=== PATIENT | female | born 2005 | race Caucasian/White ===

== ENCOUNTER 2025-08-19 13:09 | Outpatient (REF) | payer OTHER, SELFPAY ==
[2025-08-20 14:56] LABS: Bacterial Vaginosis PCR NEGATIVE (Negative); Candida Group PCR NOT DETECTED (Not Detect); Candida glab krusei PCR NOT DETECTED (Not Detect); Trichomonas vaginalis PCR NOT DETECTED (Not Detect)
[2025-08-20 15:26] LABS: CT PCR NOT DETECTED (Not Detect.); NG PCR NOT DETECTED (Not Detect.)
== END 2025-08-19 13:10 | disposition home or self-care (01) ==
LOC: HO.LNP 13:09
PROVIDERS: PCP Pediatrics; Visit Provider Advanced Practice Midwife
DX: Z01.419 Encounter for gynecological examination (general) (routine) without abnormal findings (principal); Z20.2 Contact with and (suspected) exposure to infections with a predominantly sexual mode of transmission; Z30.09 Encounter for other general counseling and advice on contraception; Z79.899 Other long term (current) drug therapy
CPT/HCPCS: 81515; 87491; 87591; 88175

== ENCOUNTER 2025-08-19 13:09 | Outpatient (AMB) | payer OTHER, SELFPAY ==
--- NOTE | 2025-08-19 13:10 | A.OFFVIS_ITS ---
Vital Signs 08/19/25 13:18 Height 5 ft Weight 126 lb BMI 24.6 BP 114/68 Intake Visit Reasons: New patient Birthcontrol Green Building Architect: Green Building Architect Present (Liya) Accompanied by: Self / Same As Patient Allergies No Known Allergies Allergy (Verified 08/19/25 13:17) Medication List - Last Reconciled 08/19/25 by Janine Woods CNM levonorgestrel-ethinyl estrad 0.1-20 mg-mcg (Vienva) 1 tab PO DAILY Is last menstrual period known: Yes Last menstrual period: 08/05/25 Post menopausal: No Patient : No HPI HPI New patient Birthcontrol: Details: Patient is here scheduled for a new patient control visit but the patient tells me she is on control and is doing very well with her control pills and is not having any issues with them at all. 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 She has plans to go to a practice that has been recommended to her. She said she was on pills from age 11 on for years and stopped them at some point because she felt the she wanted to give herself a break for various reasons and her periods then returned to very heavy long periods which is why she was started on them in the 1st place when she is on the pills her periods come very regularly within a day or 2 of stopping the active pills and taking the placebo pills and last for about 5 days and are not heavy.. She is sexually active and when she has sex with anyone she makes sure that they where a condom 100%. Her only health history problems revolve around a torn labrum when she was running cross-country and she had a repair at age 16 during the pandemic and says she is fine now and has resumed running. She does not smoke she has healthy habits otherwise she wears a seatbelt. 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 Female Reproductive History Menstrual Age of Menarche: 10 Date of last menstrual period: 08/05/25 control method: pills Total pregnancies: 0 Physical Exam Vital Signs: Last Vital Signs BP 114/68 08/19/25 13:18 BMI result Body Mass Index 24.6 Const General: healthy appearing, comfortable, no acute distress, well developed and alert Nutritional Appearance: average body habitus Orientation/consciousness: patient oriented x3 Limitations: no limitations HEENT Head: Yes normocephalic Neck Neck: Yes normal visual inspection Chest Chest palpation & inspection: normal inspection of the chest Breast/axilla inspection: normal inspection of the breasts and normal inspection of the axillae Breast/axilla palpation: normal palpation of the breasts and normal palpation of the axillae Resp Effort & Inspection: normal respiratory effort GI Inspection: Yes normal to inspection, No Abdominal wall edema and No distended Palpation (GI): Soft to palpation and nontender Other: External exam within normal limits vagina is pink and moist nulliparous cervix pink smooth healthy appearing with very normal appearing mucus consistent with consistent OCPs. Slightly friable with Pap cervix long close thick mobile nontender cervix is deep in pelvis uterus midposition to anteverted mobile nontender adnexa nontender no organomegaly good muscle tone. General: Yes bladder normal to palpation External Female Exam: normal external appearance and normal appearance of the urethra Speculum Exam - Vagina: normal appearance of the vagina, normal palpation and normal vaginal discharge Speculum Exam - Cervix: normal appearance of the cervix, normal palpation and nontender Bimanual exam- vagina & uterus: normal bimanual exam, normal palpation, uterine size normal, bladder normal to palpation, consistency normal, normal palpation, uterine mobility normal, uterine shape normal, No Cervical tenderness present, non-tender and no cervical motion tenderness Bimanual Exam- Adnexa, other: normal adnexae, no masses, normal and No adnexal tenderness Neuro General: patient oriented x3 Assessment & Plan Assessment & Plan (1) Encounter for Papanicolaou smear for cervical cancer screening: Code(s): Z12.4 - Encounter for screening for malignant neoplasm of cervix Category: Medical (2) Counseling for control, oral contraceptives: Code(s): Z30.09 - Encounter for other general counseling and advice on contraception Category: Medical (3) Encounter for screening examination for sexually transmitted disease: Code(s): Z11.3 - Encounter for screening for infections with a predominantly sexual mode of transmission Category: Medical Plan -----Discussed in this visit the following: healthy balanced diet, regular and consistent exercise, getting recommended health screens, doing the best she can for her particular health concerns, kegel exercises, pap smear screening and followup recommendations, mammography screening and SBE, normal changes in cycles in her life stage--- . She has no family history of cancer. She believes that she receive the HPV vaccine from her buffing wheel operator. She has stead fast about her use of condoms and has no desire to contract STIs. She declines blood work for screening for HIV hep B hep C and syphilis but she would seek testing if she has never had any concerns. She has been on the pills and then off the pills and back on these pills which are a lower dose than the original ones and is doing very well with them and has no concerns whatsoever on the pills. She had mentioned a concern of endometriosis when she spoke with the MA and I explained the diagnostic process to discover if that is a problem and usually if somebody has improvement of dysmenorrhea and heavy menses with OCPs that in and of itself is a beneficial sign and does not point in the direction of endometriosis.. She assured me that she has a enough control pills in her current prescription and I urged her just to be careful not to run out and if she wanted us to take over the prescribing the control pills she would just need to call and I would recommend she call whenever she would be alerted to a warning of no further prescription so that there is time for us to send them in a timely manner so she does not run out between packs she believes that future primary care we will continue the prescription. Discussed interval for Pap smear screening and annual exam visits and the whoever would be prescribing her control pills would need to see her on a yearly basis if this Pap smear is negative her next Pap smear would be in 3 years. Also reviewed the testing for tests we did today for gonorrhea chlamydia and trichomoniasis which are STIs and bacterial vaginosis and yeast which are not and the imperfections in their testing criteria which often yield over calling of diagnoses and that she only needs to treat if she has symptoms. Orders: Orders Pap Smear Today Z01.419 - Encounter for gynecological examination (general) (routine) without abnormal findings CT NG by PCR Vag/Cerv Today Z01.419 - Encounter for gynecological examination (general) (routine) without abnormal findings Bacterial Vaginosis Panel Today Z01.419 - Encounter for gynecological examination (general) (routine) without abnormal findings Coding Level of Care Code New Pt Prev Care [id number]([id number] Diagnoses Encounter for Papanicolaou smear for cervical cancer screening Z12.4 Counseling for control, oral contraceptives Z30.09 Encounter for screening examination for sexually transmitted disease Z11.3
[2025-08-19 13:18] VITALS: BP 114/68; BMI 24.6
--- OUTSIDE RECORDS SUMMARY | 2025-08-19 15:54 | XMS_ITS | Encounter Summary ---
Author Organization [facility] Address [address] [place] [phone] Phone Care Team Providers Care Corporate Job Titles Name Role Phone Anaid Maciel NP Primary Care Provider [phone] Reason for Visit * Reason Comments Med Refill Encounter Details Date Type Department Care Team (Late st Contact Info) Description 12/05/2018 Refill [facility] [address] [place] [address] [place] [phone] Caridad Griffin MD [address] [place] [id number] Encounter for surveillance of contraceptive pills Social History Tobacco Use Types Packs/Day Years Used Date Smoking Tobacco: Never Smokeless Tobacco: Never Comments:Never Smoker Comments Unknown Sex and Gender Information Value Date Recorded Sex Assigned at Female 04/15/2025 1:41 PM EDT Legal Sex Female 6:28 PM EDT Gender Identity Female 11/17/2021 2:17 PM EST Sexual Orientation Straight 04/09/2024 1: 47 PM EDT documented as of this encounter Miscellaneous Notes * Telephone Encounter - Nancy Hernandez MA - 12/05/2018 9:05 AM EST Last pe 09/17/18 with [facility] documented in this encounter Plan of Treatment Upcoming Encounters Date Type Department Care Team (Late st Contact Info) Description 04/16/2026 1:30 PM EDT Office Visit [facility] [address] [place] [address] [place] [phone] Anaid Maciel NP [address] [place] [address] [place] [phone] documented as of this encounter Visit Diagnoses Diagnosis Encounter for surveillance of contraceptive pills documented in this encounter Care Teams Corporate Job Titles Relationship Specialty Start Date End Date Anaid Maciel NP [facility] [facility] [place] [phone] PCP - General Pediatrics 04/25/23 documented as of this encounter
--- OUTSIDE RECORDS SUMMARY | 2025-08-19 15:54 | XMS_ITS | Clinical Summary ---
Author Organization [facility]'s Address [address] [place] [phone] Phone Care Team Providers Care Manufacturing Development Engineer Name Role Phone Anaid Maciel NP Primary Care Provider [phone] Allergies Active Allergy Reactions Criticality Noted Date Comments Carrot Oil 09/21/2024 Environmental 09/17/2018 seasonal Shellfish Protein-Containing Drug Products 09/21/2024 Medications Cetirizine HCl (ZYRTEC PO) prn 6 Active benzoyl peroxide 5 % external liquidIndicatio ns:Acne vulgaris Apply topically daily. 142 g 12 5 04/15/20 26 Active clindamycin 1 % lotionIndicatio ns:Acne vulgaris Apply topically daily. 60 mL 5 04/15/20 26 Active tretinoin (Retin-A) 0.025 % creamIndication s:Acne vulgaris Apply 1 Application topically nightly. Apply to affected area after gentle cleansing 45 g 5 5 04/15/20 26 Active EPINEPHrine 0.3 MG/0.3ML injection syringeIndicati ons:Shellfish allergy Inject 0.3 mL (0.3 mg total) into the muscle Once PRN for anaphylaxis for up to 1 dose. 2 each 5 Active Vienva 0.1-20 MG-MCG per tabletIndicatio ns: control counseling TAKE 1 TABLET BY MOUTH EVERY DAY 84 tablet 3 5 Active Active Problems Problem Noted Date Diagnosed Date Acne vulgaris 04/15/2025 Assessment & Plan (04/15/2025 1:53 PM EDT): AM - benzoyl peroxide wash, clindamycin spot treatment PM - cleanse face, retinoid cream Moisturize twice daily Use sunscreen! control counseling 04/09/2024 Assessment & Plan (07/17/2025 9:58 AM EDT): Doing well. BP WNL No concerns Will be getting in with NETWORK SYSTEMS ANALYST for pap smear soon Assessment & Plan (04/15/2025 1:53 PM EDT): Counseling completed Young Adult Plan: Get 8-9 hours of sleep per night. Eat healthy diet including 5 servings fruits and vegetables, no daily soda or juice, 3 servings calcium rich foods daily. Get one hour of exercise daily. Wear seatbelt in car, helmet while riding bike. Dental checkup every 6 months If wears eyeglasses or contacts, vision exam yearly Personal space, safe sex, bullying counseling done. Assessment & Plan (04/11/2025 11:45 AM EDT): Elvira would like to start on OCP No contraindications Discussed side effects Counseling completed Will recheck in 3 months test was negative control pills: Start taking control the Monday during or directly after your next period begins. Take the pill at the same time every day (can set an alarm on phone). If nausea occurs then okay to take pill at night before bed. If a pill is forgotten then take 2 pills on one day, if 3 pills are missed then you will take 2 pills for the following 2 days. Do NOT take more than 2 pills at one time. Follow up in 3 months after starting control. Be sure to stay well hydrated while on control pill. Monitor for severe chest pain or leg pain which can be the sign of a blood clot, especially in the context of a long flight or other immobilization. Perform calf massages and exercises during immobilization. Remember that antibiotics can interfere with a control pill's effectiveness if it is being used for contraception, and a backup method of contraception such as condoms should be used. Assessment & Plan (04/09/2024 2:05 PM EDT): Growing and developing well [facility] counseling completed Young Adult Plan: Get 8-9 hours of sleep per night. Eat healthy diet including 5 servings fruits and vegetables, no daily soda or juice, 3 servings calcium rich foods daily. Get one hour of exercise daily. Wear seatbelt in car, helmet while riding bike. Dental checkup every 6 months If wears eyeglasses or contacts, vision exam yearly Personal space, safe sex, bullying counseling done. Other insomnia 04/07/2023 Assessment & Plan (04/07/2023 8:44 AM EDT): Will increase Fluoxetine dose to 15mg daily. Recheck in 5-6 weeks. Counseling done. Depression 11/18/2021 Anxiety disorder 09/07/2021 Assessment & Plan (04/15/2025 1:53 PM EDT): Doing well without medication Assessment & Plan (11/17/2024 4:00 PM EST): Pt presented for follow-up with [facility] Her best friend Patti had her baby- Raji and she is going to be Aunconor Thomas. She hasn't met this little baby yet, but is going to give her friend time to settle in and wants to be able to offer her some time to shower and do what she needs and pt can watch the baby. Has a date- met on hinge. Not sure she will be into it, but will give it a try. 8am coffee/tea date before she has to go to work. School starts Monday - busy schedule but Is wanting to start and get back into the groove of school and all that entails. She noted that she is planning to talk to mom next week about where she is with finding a therapist. She thinks that mom has been drinking a few times, not sure, and doesn't want to pry and ask. Pt will return for follow-up with [facility] end of month Pt denies SI HI AVH Assessment & Plan (11/01/2024 12:57 PM EST): Pt presented for follow-up with [facility]. She noted that her mom relapsed a few weeks ago, she admitted to drinking again. Pt noted that while she was upset and concerned, she operates from her logical brain and was able to talk with mom, ask open ended questions, filtering down to under the surface. [place] like her therapist, didn't like that. [place] it was too much for her, but is hopeful she planted the seed for mom to be more open to finding a therapist for herself. Pt noted that mom will be having a good day, but will point out the negatives and dwell. Also mom is used to routine/patterns of having a drink when she wants. Stages of change Told mom- AA meeting and/or therapist and then I won't bother you, you are on your own Pt was able to set some boundaries and also be supportive- discussed showing mom that this does affect her emotionally, as the daughter, not blaming or shaming, but be authentic. Pt denies SI. JYOTI DOMINGO Will follow-up in a few weeks Assessment & Plan (10/05/2024 2:11 PM EST): Pt presented for follow-up with [facility]. She noted that her mom has remained sober, as far as she knows, she has seen her a few times and believes she is in better spirits. 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 She tried her best in all classes and is doing well, but this one class she feels the professor is not fair in many ways. Pt noted that she feels she has time management skills down, not working has been helpful to complete assignments and attend classes to soley focus on school. Her best friend will be having her baby in November and she is very excited! Pt denies SI, JYOTI DOMINGO Will follow-up with pt after [facility] Assessment & Plan (08/27/2024 11:34 AM EDT): Pt presented for follow-up with [facility]. She was apologetic for no-showing the appt scheduled for 08/19- she noted that her mom was in the hospital and was focused on that. Pt discussed at length regarding her mom- her mom has been an alcoholic for as long as she can remember, but functional , as her mom would say. Apparently her mom drank more than she usually consumes, was dehydrated and was taken to the ER with essentially alcohol poisoning. Pt and her sister and her aunt were all there- discussing possible interventions, do they trust her to go home and not drink? Is her enabling her? Pt was emotional as she wants her mom to get help, however she is resistant now. Pt noted that her mom has not had any alcohol, to her knowledge, since last weekend when she was taken to the ER. She was admitted and give fluids. Pt went out to eat with her mom- she saw her eat and now she is drinking tea instead of alcohol. Pt wants to be hopeful and optimistic that her mom will commit to sobriety, but she is not sure if there is something else she should be doing. Discussed with pt the stages of change and how people will cycle through- hoping for no relapse. Pt noted that she is sad, mad, frustrated but also wants to be supportive. She uses humor to deflect- something that has been helpful for her. Praised pt for mario assertive, trying to set boundaries with her mom and hold her accountable Pt noted that family comes first and luckily her professor's were understanding. Pt will follow-up with [facility] in a month or so. Advised pt to look into recovery places and supports for mom, even if she is hesitant now, also for pt to gain more knowledge of what mom may be experiencing emotionally and physiologically. Pt receptive- pt denies JOSE L SCHAFER AVH Assessment & Plan (07/04/2024 3:24 PM EDT): Pt presented for follow-up with [facility]. School starts again next week- her schedule is heavy Mon, Tues and Wed, labs each day. She is not going to be working when school begins in order to prioritize school work. She is worried about money not working, but also not planning to spend much. If the work load is not too demanding, she may consider picking up some shifts at the [employer]. Pt discussed her recent interaction with her ex- thoughts and feelings around that and what she would like to happen- wanting to be friends and not have it be awkward. She does want to focus on school and not getting behind and stressed. Pt will follow-up with [facility] in August- assess and plan from there. Pt denies JOSE L SCHAFER Assessment & Plan (06/06/2024 2:15 PM EDT): Pt presented for follow-up with [facility]. She discussed her recent trip to [place], with her best friend and her bf. First time flying and it was OK- some travel delays and hiccups, but all in all she had a good time and enjoyed being away for a week. Pt will continue to work at the [employer] for the summer, but once school starts she will not work as school will be demanding of her time. She noted some worry about money as she prides herself on being financially independent. Pt lives within her means and is very responsible, per her report. No other issues or concerns reported - she is enjoying the time off of school and mentally preparing for next semester. Pt denies JOSE L SCHAFER AVH Will follow-up with pt towards end of the month, prior to school starting. Assessment & Plan (05/17/2024 9:42 AM EDT): Pt presented for follow-up with [facility]. She took one summer class, which just ended and will be taking another one, online, in a few weeks. Her best friend is - she is really excited for her. Pt her best friend and best friend's bf are going to [place] this weekend for a week- pt has never flown, so a bit nervous about it. Discussed some strategies to calm her self before the flight and on the flight. Pt has been able to relax a bit this summer- working a few days, but with less school work, it has been less stressful. Fall semester she will have a lot of labs, long days and already decided that she is not going to work for the semester as it will be too much on her plate. Pt demonstrating good judgement and boundaries. No other issues reported- pt denies JOSE L SCHAFER AVH Will follow-up with pt in 5-6 weeks. Assessment & Plan (04/09/2024 2:05 PM EDT): Stopped taking her fluoxetine. Would not like to restart. Would like to see Theresa Lagos showed her last visit so will need to get approval prior to starting. Message sent to Theresa HardyHomero Assessment & Plan (01/09/2024 1:48 PM EST): Pt presented for follow-up with [facility]. She is on spring break from college this week- working at [employer] and relaxing. She discussed some drama going on with her reshma friends and ex-bf. She noted that her ex-bf is concerned that pt and their mutual reshma friend are going to be dating- no evidence of this, but supposedly this has caused some stress for pt. She wanted to try and figure out exactly what her ex-bf was trying to do or what trust issues he was having. Pt is still friends with the other guys- noted that this is typical behavior of her ex. No other concerns reported- she is not going to stress about the WISH program at school where she gets a monetary scholarship for maintaining a 3.5 gpa. Pt will follow-up with [facility] in 1 month. Pt denies SIJOSE L, JERRELLH Assessment & Plan (12/14/2023 2:06 PM EST): Pt presented for follow-up with [facility]. Pt started new semester of college and has been very busy with classes, homework and also working at the [employer]. She likes being busy, but some days it feels non-stop. She is learning ways that help her to best organize and use her time management effectively. One scholarship she received required she maintains a 3.5 GPA, hers last semester was 3.2. She is not too concerned, and is pleased with her grades considering some classes were quite difficult. Discussed importance of self-care while working and in school- to find time to do something relaxing and/or productive to relieve some stressors. Pt denies SI, HI, AVH Pt will follow-up with [facility] in 1 month Assessment & Plan (11/17/2023 4:20 PM EST): Pt presented for follow-up with [facility]. Pt is still on winter break and been working and just hanging out. Pt discussed at length her past relationship and some thoughts and feelings that have come up that have made her sad and question herself at times. She noted that her ex-bf had pros and cons- learned things from the relationship that she will look out for in the future. Likes the idea of having a bf and someone to love and be close to, however no one has fit the mold yet. [facility] encouraged pt to stick with her morals and values- trust her gut and intuition. Still young and many things in life to experience. No other concerns reported- pt denies SI, HI, AVH Will follow-up with pt in 3-4 weeks Assessment & Plan (10/27/2023 1:08 PM EST): Pt presented for follow-up with [facility]. She just finished her finals for the semester and grades were better than she was expecting. Organic Chem is still hard- she will be taking it again next semester. Pt noted she feels is in a good routine with work and school- figuring out good time management skills and improving motivation. She will continue to work at the [employer] next semester, but due to class schedule, her days and time will be different. Pt demonstrated her assertiveness and spoke with management about what she is able to do and her requests were fulfilled. Pt noted she is going to see some friends from high school this weekend- discussed some stress with planning and and miscommunication, but she is looking forward to it regardless. No concerns reported- pt seems to be doing well and is proud to have finished her first semester at [employer]. Pt denies SI, HI, AVH Assessment & Plan (09/25/2023 2:24 PM EST): Pt presented for follow-up with [facility]. She noted that she is doing ok with school- feels as though she is keeping up with work, assignments and studying, while also working her job. She is adjusting well and while nervous for finals, is going to remain optimistic and not over think studying and studying habits. Organic Chem is still hard for pt, but she is getting extra help when needed. She noted she is looking forward to a break for Thanksgiving to recharge and do things for herself. No other concerns reported- pt seems to be adjusting and has a good attitude toward challenges she is facing. Will follow-up with pt in 1 month, midst or after finals. Pt denies SI, HI, AVH Assessment & Plan (08/28/2023 2:20 PM EDT): Pt presented for follow-up with [facility]. She noted she has been a little stressed with mid-terms happening, worried about time management. She has been doing well with school and work, however mid-terms have increased some stress. She is getting extra help for Chemistry with a fellow classmate and trying her best. Discussed how this is the first semester- still trying to figure it all out in regards to professors, teaching styles, time management. She was sad to report that they had to put her cat down last week, as she has been ailing in health. As much as she would love another pet right now, it may be too soon and with her busy schedule she won't be able to care for it as she would want. Despite some stressors and trying to figure school out, she remains optimistic about problem solving and time management. Will follow-up with pt in 3-4 weeks. Pt denies JOSE L SCHAFER AVH Assessment & Plan (07/03/2023 5:34 PM EDT): Pt presented for follow-up- noted she has been a bit stressed in regards to money. She has not picked up her medication, Fluoxetine, as she didn't have enough money. She noted that her cat has been sick, and her and her sister took him to the ER, which cost more than they expected. She discussed her frustration with her father as she feels he is not good with money- will spend it on dumb things , then will get anxious when money is tight. Pt noted that she tends to be the rational and logical one, where her father tends to be operating from the emotional brain. Pt has learned throughout the years to become assertive, despite some uncomfortableness. Pt prides herself on making good choices in regards to money and spending- something she mentioned her father and sister lack. Pt will be starting school soon at [employer] and will continue to live at home and work at the [employer]. She reported having mixed emotions about school- excited to get back into the routine and learn about specific interests such as science and human behavior. Despite some stressors, pt presents confident and realistic. Will follow-up with pt in 1 month to check-in and assess need for ongoing sessions. Pt denies SI, HI, AVH Assessment & Plan (05/30/2023 2:18 PM EDT): Pt presented for follow-up and noted she has been running around doing errands and was called into work for a few hours on her day off. Pt noted that she enjoys being busy, despite complaining at times. She is still yearning for her own dog, but her dad is still hesitant to allow that. Pt noted she is going to hold off as she will be starting school in the fall and in not sure if her schedule would allow for her to care for a dog. No new concerns reported and will follow up with pt in 1 month No SIJOSE L AVH Assessment & Plan (05/12/2023 2:59 PM EDT): Pt presented for follow-up with [facility] and noted she just came back from a family vacation in the [facility]. She had a nice and relaxing time- spent time with her sister and one of her good friends. Pt noted work has been going well- is still hoping for a dog, but her father is still not on board. Pt reported thinking about past trauma - with a previous boyfriend who she dated for a little while. 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 Pt discussed her mother and borderline alcoholism as her mother does drink nightly- sometimes get drunk. Due to her mother and her behaviors, pt is more cognizant of what she does in regards to alcohol and other substances. Pt noted she is more aware of yellow and red flags in regards to relationships and would like to explore this further in future sessions. Will follow-up with pt in 1 month Pt denies SI, HI, AVH Assessment & Plan (04/13/2023 12:49 PM EDT): Pt presented for consult with [facility] to discuss anxiety and ways to manage it. Pt is an animated, talkative and hard working 18 y/o, who has been experiencing heightened anxiety due to over thinking situations and events, being somewhat close-minded out of defense/fear and difficulty sleeping. Pt noted that she has always struggled with sleep, ever since she was little. Although not ideal, she has learned to function on minimal sleep. Which could be exacerbating the anxiety. Pt recently fished 2 years at [employer] and will be going to [place] in the fall, living at home and commuting. She is working at a [employer] day [employer] place in [place] and really enjoys it. She wants her own dog, but her father has been giving her push back. Pt noted that it can be hard to shut her brain off at times- especially at night. She noted trying different medications for sleep and has started taking Ashwaganda ( natural remedy) in conjunction with her fluoxetine 15mg. [facility] inquired about skills that she has used and worked, as well as ones that do not work. Encouraged journaling when having racing thoughts as a way to get them down on paper to take up less brain power. Self-care importance- mind, body and soul. Pt will benefit from CBT skills and learning to put less pressure and expectations on herself. She is social and would like to be able to meet more people, just unsure how to. Pt will follow up with [facility] in 5 weeks to assess anxiety levels and any strategies learned. Pt denies SI, HI, AVH Assessment & Plan (03/08/2023 10:09 AM EDT): Elvira presents today for new side effects since increasing her fluoxetine. She also had similar side effects from Lexapro. We discussed the option of switching drug classes to SNRI. Elvira would like to try returning to her previous dose and see how she does. She has a [facility]CC in one month with Dr. Mclean to discuss how this is going. We did discuss the importance of calling the office if these side effects do not lessen from decreasing her dose or if she has a worsening of depression/anxiety. I am also going to set her up to meet with BHARATH Medrano. She was seen in the past by Dr. Jackson but this wasn't a good fit for her. I think she may benefit from a few sessions with Theresa. We also discussed reaching out to [facility] or [facility] for a fpc therapist. Extrinsic asthma 09/11/2017 Overview (09/22/2018): Reactive airway disease (493.00) Onset: 09/11/2017 Added by: Caridad Griffin Assessment & Plan (04/07/2023 8:47 AM EDT): Stable. Counseling done. Resolved Problems Problem Noted Date Diagnosed Date Resolved Date Irregular menstrual bleeding 04/17/2024 04/15/2025 Assessment & Plan (04/17/2024 12:01 PM EDT): Variety of differentials for irregular menstrual bleeding x 1 month Will do blood work today. Order pelvic US. Also reports pain with sex. ?fibroids Referral for NETWORK SYSTEMS ANALYST was placed last week Sleep difficulties 09/07/2021 Palpitations 06/30/2021 04/15/2025 Assessment & Plan (06/30/2021 10:59 PM EDT): Very brief episodes of palpitations (10-60 seconds) that are not associated with any other symptoms and are not interfering with any activities. No concern currently for a significant arrhythmia, thyroid dysfunction, reflux or lung issue. Most likely increased sensation of heart rate. Return for further evaluation if episodes are becoming more frequent or are interfering with activity. Influenza vaccine refused 09/17/2018 Closed fracture of phalanx of foot 02/15/2018 06/18/2021 Overview (09/22/2018): Closed fracture of toe (826.0) Onset: 02/15/2018 Added by: Debi Membreno Encounters Date Type Department Care Team Description 07/22/2025 Orders Only [facility] [address] [place] [address] [place] [id number] Anaid Maciel NP control counseling (Primary Dx) 07/21/[address] [place] [address] Anaid Maciel, PRATIBHA NETWORK SYSTEMS ANALYST 07/17/2025 9:30 AM EDT Office Visit [address] [place] [address] Anaid Maciel NP control counseling (Primary Dx); Need for vaccination 07/03/2025 Telephone [facility] [address] [place] [address] [place] [address] Anaid Maciel, PRATIBHA Referral to Derm 05/29/2025 Refill [facility] [address] [place] [address] [place] [address] Anaid Maciel, PRATIBHA control counseling from Last 3 Months Immunizations Immunization Administration Dates Next Due DTaP 5 06/23/2008, 4,2003,07/09,2003 HPV Vaccine 9 Valent 09/22/2020,09/17/2019,09/17 Hep A, ped/adol 09/17/2018,09/11/2017 Hep B, ped/adol 05/19/2004,2003,2003 Hib (PRP-T) 08/25/2004, 3,2003,04/28 IPV 06/23/2008, 4,2003,04/28 Influenza, injectable, quadr ivalent, preservative free 12/27/2021,09/17/2018 Influenza, injectable, triva lent, preservative free 07/17/2025 MMR 06/23/2008,02/16/2004 Meningococcal Conj (Menactra) MCV4P 09/17/2019,0 02/13/2017 Pneumococcal Conjugate 13-Valent 005,2003,2003,04/28 Tdap 07/17/2025,06/26/2015 Varicella 06/23/2008,02/16/2004 Family History Medical History Relation Name Comments No Known Problems Father David No Known Problems Mother Griselda No Known Problems Sister Zuly Relation Name Status Comments Father David Alive Mother Griselda Alive Sister Zuly Alive Social History Tobacco Use Types Packs/Day Years Used Date Smoking Tobacco: Never Smokeless Tobacco: Never Comments:Never Smoker Alcohol Use Standard Drinks/Week Comments Yes 0 (1 standard drink = 0.6 oz pur e alcohol) socially Hunger/Food Answer Date Recorded In the last 12 months, did y ou or your family ever eat less than you felt you should because there wasn't enough money for food? No 04/15/2025 Stable Housing Answer Date Recorded Are you worried that in the next 2 months you may not have stable housing? No 04/15/2025 Transportation Concerns Answer Date Rec orded In the last 12 months, have you or your family ever had to go without healthcare because you didn't have a way to get there? No 04/15/2025 Hazards in Home Answer Date Recorded Think about the place you li ve. Do you have problems with any of the following? Pests (mice or roaches), mold, no/not working smoke detectors, water leaks, no window guards. No 2024 Financing Utilities Answer Date Recorde d In the last 12 months, has t he electric, gas, oil, or water company threatened to shut off your services in your home? No 04/15/2025 Safety at Home Answer Date Recorded Are you or your family worried about feeling saf e in your home? No 04/15/2025 Outside Support Answer Date Recorded Do you feel that you need mo re support from other people or programs to help you care for yourself or your family? No 04/15/2025 Understanding Health Concerns Answer Da te Recorded Do you need help understandi ng your or your child's healthcare needs (diagnosis, medications, plan, etc.)? No 04/15/2025 Financing Health Concerns Answer Date R ecorded In the last 12 months, was t here a time when your child needed to see a doctor or get medications or supplies but could not because of cost? No 04/15/2025 Missing School or Work Answer Date Kostas rded Did you or your child miss s chool or work because of a health problem that could have been avoided? No 04/15/2025 Child Education Answer Date Recorded Do you have concerns about y our/your child's learning or behavior in school, preschool, or daycare? No 04/15/2025 Comments No Sex and Gender Information Value Date Recorded Sex Assigned at Female 04/15/2025 1:41 PM EDT Legal Sex Female 6:28 PM EDT Gender Identity Female 11/17/2021 2:17 PM EST Sexual Orientation Straight 04/09/2024 1: 47 PM EDT Last Filed Vital Signs Vital Sign Reading Time Taken Comments Blood Pressure 118/72 07/17/2025 9:37 AM EDT Pulse 74 04/15/2025 1:31 PM EDT Temperature 37 C (98.6 F) 07/17/2025 9:37 AM EDT Respiratory Rate - - Oxygen Saturation - - Inhaled Oxygen Concentration - - Weight 56.4 kg (124 lb 6.4 oz) 07/17/2025 9:37 A M EDT Height 168.9 cm (5' 6.5 ) 04/15/2025 1:31 PM EDT Body Mass Index 19.78 04/15/2025 1:31 PM EDT Plan of Treatment Upcoming Encounters Date Type Department Care Team (Late st Contact Info) Description 04/16/2026 1:30 PM EDT Office Visit [facility] [address] [address] Anaid Maciel, CYCLE TOURING GUIDE [address] [place] [address] Health Maintenance Due Date Last Done Comments HIV Screening 2018 Men B Vaccine (1 of 2 - Standard) 2019 Hepatitis C Screening 2021 COVID-19 Vaccine (4 - 2024-2 6 season) 2025 11/19/2021, 05/11/2021, 04/20/2021 DTaP,Tdap,and Td Vaccines (8 - Td or Tdap) 07/17/2035 07/17/2025, 06/26/2015, 06/23/2008, Additional history exists Hepatitis B Vaccines Completed 05/19/2004, 2003, 2003 HIB Vaccines Completed 08/25/2004, 08/07, 2003, Additional history exists Pneumococcal Vaccine Completed 02/22/2005, 2003, 2003, Additional history exists IPV Vaccines Completed 06/23/2008, 08/07, 2003, Additional history exists MMR Vaccines Completed 06/23/2008, 02/16/2004 Varicella Vaccines Completed 06/23/2008, 02/16/2004 Hepatitis A Vaccines Completed 09/17/2018, 09/11/20 17 Meningococcal Vaccine Completed 09/17/2019, 017 HPV Vaccines Completed 09/22/2020, 09/06, 09/17/2018 Chlamydia and Gonorrhea Screening Completed 04/15/2025, 09/21/2024, 04/09/2024, Additional history exists Influenza Vaccines Completed 07/17/2025, 0 12/27/2021, 07/18/2020, Additional history exists Procedures * Due to [facility] law, this organization might not be sharing sensitive test results. Procedure Name Priority Date/Time Associated Diagnosis Comments CHLAMYDIA AND GONORRHEA, AMPLIFIED Routine 04/15/2025 1:57 PM EDT Screening for STD (sexually transmitted disease) from Last 3 Months or Most Recently Relevant to Health Maintenance Results * Due to [place] [employer] law, this organization might not be sharing sensitive test results. * Chlamydia and Gonorrhea, Amplified (04/15/2025 1:57 PM EDT) C trach NICKIE Negative Negative [facility] N gonorrhoeae NICKIE Negative Negative [facility] Swab (Vagina) 04/15/2025 1:5 7 PM EDT 04/15/2025 Comment:VAGINAL Narrative [facility] - 04/16/2025 7:05 PM EDT Performed at: 01 - [facility] [address], [address], [place], [place] [id number] Wort Extractor: Turner Carroll MD, Phone: [phone] Anaid Maciel NP LAB MICROBIOLOGY - GENERAL ORD ERABLES Final Result Performing Organization Address City/State/[facility] Co de Phone Number [facility] [address] [place] [address] from Last 3 Months or Most Recently Relevant to Health Maintenance Insurance [facility] [facility] [employer] Care Teams Manufacturing Development Engineer Relationship Specialty Start Date End Date Anaid Maciel NP [facility] [place] [address] PCP - General Pediatrics 04/25/23
--- OUTSIDE RECORDS SUMMARY | 2025-08-19 15:54 | XMS_ITS | Encounter Summary ---
Author Organization [facility] Address [address] [place] [phone] Phone Care Team Providers Care Hypoid Gear Generator Name Role Phone Anaid Maciel NP Primary Care Provider [phone] Reason for Visit * Reason Comments Med Refill Encounter Details Date Type Department Care Team (Late st Contact Info) Description 12/06/2018 Refill [facility] [address] [place] [address] [place] [address] Caridad Griffin MD [address] [place] [address] Encounter for surveillance of contraceptive pills Social [...] PM EDT documented as of this encounter Plan of Treatment Upcoming Encounters Date Type Department Care Team (Late st Contact Info) Description 04/16/2026 1:30 PM EDT Office Visit [facility] [address] [place] [address] [place] [address] Anaid Maciel NP [address] [place] [address] [place] [address] documented as of this encounter Visit Diagnoses Diagnosis Encounter for surveillance of contraceptive pills documented in this encounter Care Teams Hypoid Gear Generator Relationship Specialty Start Date End Date Anaid Maciel NP [address] [place] [address] [place] [address] PCP - General Pediatrics 04/25/23 documented as of this encounter
--- OUTSIDE RECORDS SUMMARY | 2025-08-19 15:54 | XMS_ITS | Encounter Summary ---
Author Organization [facility] Address [address] [place] [address] Phone Care Team Providers Care Academic Support Director Name Role Phone Anaid Maciel NP Primary Care Provider [phone] Encounter Details Date Type Department Care Team (Late st Contact Info) Description 03/16/2016 Conversion Encounter [facility] [address] [place] [address] [place] [address] Social History Tobacco Use Types Packs/Day Years Used Date Smoking Tobacco: Never Assessed Comments Unknown Sex and Gender Information Value [...] Description 04/16/2026 1:30 PM EDT Office Visit [facility] [address] [place] [address] [place] [address] Anaid Maciel NP [address] [place] [address] [place] [address] documented as of this encounter Visit Diagnoses Not on filedocumented in this encounter Care Teams Academic Support Director Relationship Specialty Start Date End Date Anaid Maciel NP [address] [place] [address] [place] [address] PCP - General Pediatrics 04/25/23 documented as of this encounter
--- OUTSIDE RECORDS SUMMARY | 2025-08-19 15:54 | XMS_ITS | Encounter Summary ---
Author Organization [facility] Address [address] [place] [address] Phone Care Team Providers Care Stippler Name Role Phone Anaid Maciel NP Primary Care Provider [phone] Reason for Visit * Reason Comments Med Refill Encounter Details Date Type Department Care Team (Late st Contact Info) Description 03/15/2023 Refill [facility] [address] [place] [address] Caridad Griffin MD [address] [place] [address] Anxiety with depression Social History Tobacco Use Types Packs/Day Years Used Date Smoking Tobacco: Never Smokeless Tobacco: Never Comments:Never Smoker Hunger/Food Answer Date Recorded In the last 12 months, did y ou or your family ever eat less than you felt you should because there wasn't enough money for food? No 12/27/2021 Stable Housing Answer Date Recorded Are you worried that in the next 2 months you may not have stable housing? No 12/27/2021 Transportation Concerns Answer Date Rec orded In the last 12 months, have you or your family ever had to go without healthcare because you didn't have a way to get there? No 12/27/2021 Hazards in Home Answer Date Recorded Think about the place you li ve. Do you have problems with any of the following? Pests (mice or roaches), mold, no/not working smoke detectors, water leaks, no window guards. No 2021 Financing Utilities Answer Date Recorde d In the last 12 months, has t he electric, gas, oil, or water company threatened to shut off your services in your home? No 12/27/2021 Safety at Home Answer Date Recorded Are you or your family worried about feeling saf e in your home? No 12/27/2021 Outside Support Answer Date Recorded Do you feel that you need mo re support from other people or programs to help you care for yourself or your family? No 12/27/2021 Understanding Health Concerns Answer Da te Recorded Do you need help understandi ng your or your child's healthcare needs (diagnosis, medications, plan, etc.)? No 12/27/2021 Financing Health Concerns Answer Date R ecorded In the last 12 months, was t here a time when your child needed to see a doctor or get medications or supplies but could not because of cost? No 12/27/2021 Missing School or Work Answer Date Kostas rded Did you or your child miss s chool or work because of a health problem that could have been avoided? No 12/27/2021 Comments No Sex and Gender Information Value Date Recorded Sex Assigned at Female 04/15/2025 1:41 PM EDT Legal Sex Female 6:28 PM EDT Gender Identity Female 11/17/2021 2:17 PM EST Sexual Orientation Straight 04/09/2024 1: 47 PM EDT documented as of this encounter Miscellaneous Notes * Telephone Encounter - Theresa Amaya MA - 03/15/2023 10:49 AM EDT Please deny script Pt saw Anaid 03/08/23 and dose was decreased back to 10mg. MQ documented in this encounter Plan of Treatment Upcoming Encounters Date Type Department Care Team (Late st Contact Info) Description 04/16/2026 1:30 PM EDT Office Visit [facility] [address] [place] [address] [place] [address] Anaid Maciel NP [address] [place] [address] [place] [address] documented as of this encounter Visit Diagnoses Diagnosis Anxiety with depression documented in this encounter Care Teams Stippler Relationship Specialty Start Date End Date Anaid Maciel NP [address] [place] [address] [place] [address] PCP - General Pediatrics 04/25/23 documented as of this encounter
--- OUTSIDE RECORDS SUMMARY | 2025-08-19 15:54 | XMS_ITS | Clinical Summary ---
Author Organization [facility] Address [address] [place] [address] Phone Care Team Providers Care Director Trade Name Role Phone Anaid Maciel COMPUTER EQUIPMENT REPAIRER Primary Care Provid er Allergies No known active allergies Medications No known medications Active Problems No known active problems Immunizations Immunization Administration Dates Next Due HPV9 09/22/2020 IPV 06/23/2008, 4,2003,2002 Influenza Quadrivalent Prese rvative Free IM 12/27/2021,07/18/2020 MMR 06/23/2008,02/16/2004 Tdap 06/26/2015 Varicella 06/23/2008,02/16/2004 Social History Tobacco Use Types Packs/Day Years Used Date Smoking Tobacco: Never Smokeless Tobacco: Never Education Answer Date Recorded Are you interested in more education? Not on keyshawn e 04/26/2024 Are you concerned about learning? Not on file 04/26/2024 No 04/26/2024 No 04/26/2024 Digital Access Answer Date Recorded No 04/26/2024 No 04/26/2024 Reliable internet access at home? Not on file 04/26/2024 Device with a working camera? Not on file Comments Unknown Sex and Gender Information Value Date Recorded Sex Assigned at Not on file Legal Sex Female 1:20 PM EDT Gender Identity Not on file Sexual Orientation Not on file Last Filed Vital Signs Vital Sign Reading Time Taken Comments Blood Pressure 118/73 04/26/2024 1:29 PM EDT Pulse 118 04/26/2024 1:29 PM EDT Temperature 36.9 C (98.4 F) 04/26/2024 1:29 PM EDT Respiratory Rate 18 04/26/2024 1:29 PM EDT Oxygen Saturation 98% 04/26/2024 1:29 PM EDT Inhaled Oxygen Concentration - - Weight - - Height - - Body Mass Index - - Plan of Treatment Health Maintenance Due Date Last Done Comments DEPRESSION SCREENING 2015 SMOKING Hx and SMOKELESS TOBACCO SCREENING 02/19/2016 CHLAMYDIA SCREENING 2019 MENINGOCOCCAL VACCINES (B) ( 1 of 2 - Standard) 2019 HPV VACCINES (2 - 3-dose series) 10/20/2020 09/22/2020 HEPATITIS C SCREENING 2021 HIV ONE-TIME SCREENING (18-6 5 YEARS) 2021 PAP SMEAR 02/19/2024 INFLUENZA VACCINE (#1) 2025 2, 07/18/2020 Adult Td,Tdap Booster 06/26/2025 06/26/2015 COVID-19 VACCINE (4 - 2024-2 6 season) 2025 11/19/2021, 05/11/2021, 04/20/2021 HEPATITIS A VACCINES Aged Out No long er eligible based on patient's age to complete this topic HIB VACCINES Aged Out No longer eligi ble based on patient's age to complete this topic MENINGOCOCCAL VACCINES (ACWY) Aged Out No longer eligible based on patient's age to complete this topic PNEUMOCOCCAL VACCINES (0-49 years) Aged Out No longer eligible b ased on patient's age to complete this topic Medical Devices Not on file Insurance [facility] Care Teams Director Trade Relationship Specialty Start Date End Date Anaid Maciel NP [address] [place], [place] [address] [address] PCP - General Nurse Practitioner 04/26/24 Additional Source Comments The information contained in this document represents components of the legal health record. It is not the complete legal health record.[facility]
== END 2025-08-19 14:11 | disposition home or self-care (01) ==
LOC: HO.HWSM 13:09
PROVIDERS: PCP Pediatrics; Visit Provider Advanced Practice Midwife
DX: Z01.419 Encounter for gynecological examination (general) (routine) without abnormal findings (principal); Z30.09 Encounter for other general counseling and advice on contraception; Z11.3 Encounter for screening for infections with a predominantly sexual mode of transmission
CPT/HCPCS: 99385; 99459